=== PATIENT | female | born 1990 | race Caucasian/White ===

== ENCOUNTER 2021-10-22 20:28 | Emergency (ER) | payer OTHER ==
[2021-10-22 20:45] VITALS: TEMP 100.3
[2021-10-22] MEDS ORDERED: HYDROmorphone 0.5 MG/0.5 ML SYRINGE IVP STA (20:56)
[2021-10-22] MEDS ORDERED: SODIUM CHLORIDE 0.9% 1,000 ML IV STA (20:56)
[2021-10-22] MEDS ORDERED: ONDANSETRON 4 MG/2 ML VIAL IVP STA (20:56)
--- NOTE | 2021-10-22 21:01 | ED ---
General Adult HPI - General Chief complaint: Nausea/Vomiting/Diarrhea Stated complaint: Vomiting Time Seen by Provider: 10/22/21 20:50 Source: patient, RN notes reviewed, old records reviewed Mode of arrival: ambulatory Limitations: no limitations - History of Present Illness Initial comments: 30-year-old female, alert and oriented 4, well-appearing, presents to the emergency room with complaints of abdominal pain and 4 episodes of bloody vomitus with clots. Denies bloody stool. She is passing gas. She does have a low-grade fever. She states that this is never happened to her before. She has a history of a cholecystectomy, appendectomy and C-sections. She states she went to [facility] and was told a 30 hour wait so she came here for treatment. She denies any alcohol or drug use, she is a nonsmoker. -: days(s) (1) Location: abdomen Radiation: non-radiation Severity scale (1-10): 7 Quality: burning, sharp Consistency: constant Improves with: none Worsens with: none Associated Symptoms: diaphoresis, fever/chills, nausea/vomiting (No vomiting. She) Treatments Prior to Arrival: none - Related Data Previous Rx's Medication Instructions Recorded Famotidine [Pepcid] 20 mg PO BID 30 Days #60 tablet 10/22/21 Allergies Allergy/AdvReac Type Severity Reaction Status Date / Time dicyclomine [From Bentyl] Allergy Dyspnea Verified 10/22/21 22:38 ketorolac [From Toradol] Allergy Rash/Hives Verified 10/22/21 22:37 tomato Allergy Anaphylaxis Verified 10/22/21 22:38 Iodinated Contrast Media AdvReac Rash/Hives Verified 10/22/21 22:38 latex AdvReac Rash/Hives Verified 10/22/21 22:38 Review of Systems ROS Statement: Those systems with pertinent positive or pertinent negative responses have been documented in the HPI. ROS Other: All systems not noted in ROS Statement are negative. Past Medical History Past Medical History: No Reported History History of Any Multi-Drug Resistant Organisms: None Reported Past Surgical History: Cholecystectomy Past Psychological History: No Psychological Hx Reported Smoking Status: Never smoker Past Alcohol Use History: None Reported Past Drug Use History: None Reported General Exam Limitations: no limitations General appearance: alert, in no apparent distress Head exam: Present: atraumatic, normocephalic, normal inspection Eye exam: Present: normal appearance, EOMI. Absent: scleral icterus, conjunctival injection ENT exam: Present: normal exam, normal oropharynx, mucous membranes moist Neck exam: Present: normal inspection, full ROM. Absent: tenderness, meningismus, lymphadenopathy, thyromegaly Respiratory exam: Present: normal lung sounds bilaterally. Absent: respiratory distress, wheezes, rales, rhonchi, stridor, chest wall tenderness, accessory muscle use, decreased breath sounds Cardiovascular Exam: Present: tachycardia, normal heart sounds. Absent: JVD GI/Abdominal exam: Present: soft, tenderness, normal bowel sounds. Absent: distended, guarding, rebound, rigid Extremities exam: Absent: pedal edema Back exam: Present: normal inspection. Absent: tenderness, CVA tenderness (R), CVA tenderness (L), rash noted Neurological exam: Present: alert, oriented X3, normal gait Psychiatric exam: Present: normal affect, normal mood Skin exam: Present: warm, dry, intact, normal color. Absent: rash, cyanosis, diaphoretic Course Vital Signs 10/22/21 20:40 Temperature 100.3 F H Pulse Rate 116 H Respiratory 20 Rate Blood Pressure 116/67 O2 Sat by Pulse 97 Oximetry Medical Decision Making - Medical Decision Making 30-year-old female presents with complaints of 4 episodes of bloody vomitus with clots and low grade fever started today. Patient tested positive for influenza A. Lactic acid is 2.3 and she was given one liter of normal saline. Patient was given 2 doses of Dilaudid, Zofran, Benadryl and Protonix and is feeling much better. No vomiting in the emergency room. White blood cell count is 3.2 consistent with viral infection. X-ray shows a nonacute abdomen with no pneumonic infiltrate. CT abdomen was done related to diffuse tenderness and patient report of bloody vomitus. CT of t he abdomen and pelvis with contrast shows some mild interstitial infiltrate the lung bases this is likely viral in nature. There is no acute abnormality within the abdomen or pelvis. There is no mesenteric edema free air or sign of bowel obstruction. Patient was given a take-home pack of Zofran for nausea. She is encouraged to increase her fluid intake. Take Pepcid twice a day. Return to the emergency room with any new or concerning symptoms. If bleeding recurs, go to [facility] for GI coverage. Patient is agreeable to this plan of care. Vital signs are stable at discharge. My attending is Dr Mancuso - Lab Data Result diagrams: 10/22/21 21:30 10/22/21 21:30 Lab Results 10/22/21 10/22/21 10/22/21 Range/Units 21:30 21:30 21:30 WBC 3.2 L (3.8-10.6) k/uL RBC 4.57 (3.80-5.40) m/uL Hgb 10.9 L (11.4-16.0) gm/dL Hct 35.2 (34.0-46.0) % MCV 77.0 L (80.0-100.0) fL MCH 23.9 L (25.0-35.0) pg MCHC 31.1 (31.0-37.0) g/dL RDW 15.5 (11.5-15.5) % Plt Count 231 (150-450) k/uL MPV 7.2 Neutrophils % 56 % Lymphocytes % 35 % Monocytes % 8 % Eosinophils % 0 % Basophils % 0 % Neutrophils # 1.8 (1.3-7.7) k/uL Lymphocytes # 1.1 (1.0-4.8) k/uL Monocytes # 0.2 (0-1.0) k/uL Eosinophils # 0.0 (0-0.7) k/uL Basophils # 0.0 (0-0.2) k/uL Hypochromasia Moderate Microcytosis Slight PT 9.5 (9.0-12.0) sec INR 0.9 (<1.2) APTT 22.5 (22.0-30.0) sec Sodium 143 (137-145) mmol/L Potassium 4.3 (3.5-5.1) mmol/L Chloride 110 H (98-107) mmol/L Carbon Dioxide 19 L (22-30) mmol/L Anion Gap 14 mmol/L BUN 8 (7-17) mg/dL Creatinine 0.58 (0.52-1.04) mg/dL Est GFR (CKD-EPI)AfAm >90 (>60 ml/min/1.73 sqM) Est GFR (CKD-EPI)NonAf >90 (>60 ml/min/1.73 sqM) Glucose 112 H (74-99) mg/dL Plasma Lactic Acid René (0.7-2.0) mmol/L Calcium 9.3 (8.4-10.2) mg/dL Total Bilirubin 0.4 (0.2-1.3) mg/dL AST 32 (14-36) U/L ALT 17 (4-34) U/L Alkaline Phosphatase 42 (38-126) U/L Total Protein 8.2 (6.3-8.2) g/dL Albumin 4.5 (3.5-5.0) g/dL Amylase 87 (30-110) U/L Lipase 320 H (23-300) U/L Urine Color Urine Appearance (Clear) Urine pH (5.0-8.0) Ur Specific [place] (1.001-1.035) Urine Protein (Negative) Urine Glucose (UA) (Negative) Urine Ketones (Negative) Urine Blood (Negative) Urine Nitrite (Negative) Urine Bilirubin (Negative) Urine Urobilinogen (<2.0) mg/dL Ur Leukocyte Esterase (Negative) Influenza Type A (PCR) (Not Detectd) Influenza Type B (PCR) (Not Detectd) RSV (PCR) (Not Detectd) SARS-CoV-2 (PCR) (Not Detectd) 10/22/21 10/22/21 10/22/21 Range/Units 21:30 22:26 22:26 WBC (3.8-10.6) k/uL RBC (3.80-5.40) m/uL Hgb (11.4-16.0) gm/dL Hct (34.0-46.0) % MCV (80.0-100.0) fL MCH (25.0-35.0) pg MCHC (31.0-37.0) g/dL RDW (11.5-15.5) % Plt Count (150-450) k/uL MPV Neutrophils % % Lymphocytes % % Monocytes % % Eosinophils % % Basophils % % Neutrophils # (1.3-7.7) k/uL Lymphocytes # (1.0-4.8) k/uL Monocytes # (0-1.0) k/uL Eosinophils # (0-0.7) k/uL Basophils # (0-0.2) k/uL Hypochromasia Microcytosis PT (9.0-12.0) sec INR (<1.2) APTT (22.0-30.0) sec Sodium (137-145) mmol/L Potassium (3.5-5.1) mmol/L Chloride (98-107) mmol/L Carbon Dioxide (22-30) mmol/L Anion Gap mmol/L BUN (7-17) mg/dL Creatinine (0.52-1.04) mg/dL Est GFR (CKD-EPI)AfAm (>60 ml/min/1.73 sqM) Est GFR (CKD-EPI)NonAf (>60 ml/min/1.73 sqM) Glucose (74-99) mg/dL Plasma Lactic Acid René 2.3 H* (0.7-2.0) mmol/L Calcium (8.4-10.2) mg/dL Total Bilirubin (0.2-1.3) mg/dL AST (14-36) U/L ALT (4-34) U/L Alkaline Phosphatase (38-126) U/L Total Protein (6.3-8.2) g/dL Albumin (3.5-5.0) g/dL Amylase (30-110) U/L Lipase (23-300) U/L Urine Color Yellow Urine Appearance Clear (Clear) Urine pH 5.0 (5.0-8.0) Ur Specific [place] 1.025 (1.001-1.035) Urine Protein Trace H (Negative) Urine Glucose (UA) Negative (Negative) Urine Ketones Negative (Negative) Urine Blood Negative (Negative) Urine Nitrite Negative (Negative) Urine Bilirubin Negative (Negative) Urine Urobilinogen <2.0 (<2.0) mg/dL Ur Leukocyte Esterase Negative (Negative) Influenza Type A (PCR) Detected A (Not Detectd) Influenza Type B (PCR) Not Detected (Not Detectd) RSV (PCR) Not Detected (Not Detectd) SARS-CoV-2 (PCR) Not Detected (Not Detectd) Disposition Clinical Impression: Influenza A Disposition: HOME SELF-CARE Condition: Good Instructions (If sedation given, give patient instructions): Influenza (ED), Acute Nausea and Vomiting (ED) Prescriptions: Famotidine [Pepcid] 20 mg PO BID 30 Days #60 tablet Is patient prescribed a controlled substance at d/c from ED?: No Referrals: Nonstaff,Physician [REFERRING] - 1-2 days
[2021-10-22 21:47] LABS: Basophils % (A) 0 %; Eosinophils % (A) 0 %; HCT 35.2 % (34.0-46.0); HGB 10.9 gm/dL (11.4-16.0); Hypochromasia Moderate; Lymphocytes # (A) 1.1 k/uL (1.0-4.8); Lymphocytes % (A) 35 %; MCH 23.9 pg (25.0-35.0); MCHC 31.1 g/dL (31.0-37.0); Mean Platelet Volume 7.2; Microcytosis Slight; Monocytes # (A) 0.2 k/uL (0-1.0); Monocytes % (A) 8 %; Neutrophils # (A) 1.8 k/uL (1.3-7.7); Neutrophils % (A) 56 %; Platelet Count 231 k/uL (150-450); RBC 4.57 m/uL (3.80-5.40); RDW 15.5 % (11.5-15.5); WBC 3.2 k/uL (3.8-10.6)
--- NOTE | 2021-10-22 21:52 | XR ---
EXAMINATION TYPE: XR KUB DATE OF EXAM: 10/22/2021 COMPARISON: NONE HISTORY: Abdominal pain TECHNIQUE: 2 views FINDINGS: There is no heart failure not confluent pneumonic infiltrate. Costophrenic angles are clear . There are no hilar masses. Diaphragm is normal. IMPRESSION: Nonacute abdomen.
[2021-10-22 21:55] LABS: INR 0.9 (<1.2); Partial Thromboplastin Time 22.5 sec (22.0-30.0); Prothrombin Time 9.5 sec (9.0-12.0)
[2021-10-22 22:03] LABS: ALT 17 U/L (4-34); African American GFR (CKD) >90 (>60 ml/min/1.73 sqM); Albumin 4.5 g/dL (3.5-5.0); Amylase 87 U/L (30-110); Anion Gap 14 mmol/L; Blood Urea Nitrogen 8 mg/dL (7-17); Calcium 9.3 mg/dL (8.4-10.2); Carbon Dioxide 19 mmol/L (22-30); Chloride 110 mmol/L (98-107); Glucose 112 mg/dL (74-99); Lipase 320 U/L (23-300); Non-African American GFR(CKD) >90 (>60 ml/min/1.73 sqM); Sodium 143 mmol/L (137-145); Total Bilirubin 0.4 mg/dL (0.2-1.3); Total Protein 8.2 g/dL (6.3-8.2)
[2021-10-22 22:10] LABS: AST 32 U/L (14-36); Alkaline Phosphatase 42 U/L (38-126); Potassium 4.3 mmol/L (3.5-5.1)
[2021-10-22] MEDS ORDERED: PANTOPRAZOLE 40 MG/10 ML VIAL IVP STA (22:12)
[2021-10-22] MEDS ORDERED: HYDROmorphone 1 MG/ML 1 ML SYRINGE IVP STA (22:12)
[2021-10-22 22:36] LABS: Appearance,Urine Clear (Clear); Bilirubin,Urine Negative (Negative); Blood,Urine Negative (Negative); Color,Urine Yellow; Glucose,Urine (UA) Negative (Negative); Ketones,Urine Negative (Negative); Leukocyte Esterase,Urine Negative (Negative); Nitrite,Urine Negative (Negative); Protein,Urine Trace (Negative); Specific Gravity,Urine 1.025 (1.001-1.035); Urobilinogen,Urine <2.0 mg/dL (<2.0)
[2021-10-22] MEDS ORDERED: diphenhydrAMINE 50 MG/ML 1 ML VIAL IVP STA (22:38)
[2021-10-22] MEDS ORDERED: ONDANSETRON 4 MG ODT STARTER PACK 2 TAB BTL PO STA (23:49)
--- NOTE | 2021-10-22 23:50 | CT ---
EXAMINATION TYPE: CT abdomen pelvis w con DATE OF EXAM: 10/22/2021 COMPARISON: Vomiting HISTORY: vomiting bright red with clots CT DLP: 1197.2 mGycm Automated exposure control for dose reduction was used. CONTRAST: Performed with IV Contrast, patient injected with 100 mL of Isovue 300. Images obtained from the diaphragm to the floor the pelvis with IV contrast. There is some mild interstitial infiltrate at the posterior lung bases. Heart is borderline enlarged. There is no pericardial effusion. Liver spleen and stomach pancreas appear intact. There are mild du cts are not dilated. Gallbladder appears absent. There is no adrenal mass. Kidneys show satisfactory contrast opacification. There is no hydronephrosi s. Delayed images show normal renal excretion. There is no retroperitoneal adenopathy. There are clip s from appendectomy. Bladder distends smoothly. Ureters are not dilated. Uterus is anteverted. There is no free fluid in the pelvis. There is no sign of pelvic mass. There is no inguinal hernia. There is no mesenteric edema. There is no ascites or free air. There is no sign of a bowel obstructio n. IMPRESSION: Mild interstitial infiltrate at the lung bases. No acute abnormality in the abdomen and pelvis.
[2021-10-22] MEDS ORDERED: ACET/COD 300 MG/30 MG STARTER PACK 6 TAB BTL PO STA (23:55)
[2021-10-23 00:26] VITALS: BP 109/92; PULSE 82; RESP 18
== END 2021-10-23 00:26 | disposition home or self-care (01) ==
LOC: EC 20:28
DX: J10.1 Influenza due to other identified influenza virus with other respiratory manifestations (principal); Z20.822 Contact with and (suspected) exposure to COVID-19
CPT/HCPCS: 36415; 80053; 82150; 83605; 83690; 85025; 85610; 85730; 81003; 87636; 74018; 74177; 99284; 96374; 96375 ×3; 96376; 96361 ×2; J1200; J2405; J1170 ×2; S0119; C9113; Q9967

== ENCOUNTER 2021-10-28 18:00 | Emergency (ER) | payer OTHER ==
[2021-10-28 18:27] VITALS: BP 123/78; PULSE 112; RESP 20; TEMP 100.8
--- NOTE | 2021-10-29 04:32 | ED ---
General Adult HPI - General Chief complaint: GI Bleed Stated complaint: revisit/vomiting blood Time Seen by Provider: 10/28/21 21:31 Source: patient Mode of arrival: ambulatory Limitations: no limitations - History of Present Illness Initial comments: 30-year-old female patient presented to the emergency department today for evaluation of hematemesis. The patient states that she was seen and evaluated for the same a couple of days ago she did test positive for influenza. Had labs performed. States that she did start Protonix which did seem to help somewhat but then she started vomiting blood again today. States there is clots present. She denies any dizziness or fainting. Denies any black stools, states her stools are light in color. She is reporting generalized abdominal pain worse over the upper abdomen. States she feels bloated. Denies any history of visits with GI specialist or history of hematemesis. Denies taking nsaids. Denies alcohol use. Denies any heart burn. - Related Data Previous Rx's Medication Instructions Recorded Famotidine [Pepcid] 20 mg PO BID 30 Days #60 tablet 10/22/21 Allergies Allergy/AdvReac Type Severity Reaction Status Date / Time dicyclomine [From Bentyl] Allergy Dyspnea Verified 10/28/21 18:27 ketorolac [From Toradol] Allergy Rash/Hives Verified 10/28/21 18:27 tomato Allergy Anaphylaxis Verified 10/28/21 18:27 Iodinated Contrast Media AdvReac Rash/Hives Verified 10/28/21 18:27 latex AdvReac Rash/Hives Verified 10/28/21 18:27 Review of Systems ROS Statement: Those systems with pertinent positive or pertinent negative responses have been documented in the HPI. ROS Other: All systems not noted in ROS Statement are negative. Past Medical History Past Medical History: No Reported History History of Any Multi-Drug Resistant Organisms: None Reported Past Surgical History: Cholecystectomy Past Psychological History: No Psychological Hx Reported Smoking Status: Never smoker Past Alcohol Use History: None Reported Past Drug Use History: None Reported General Exam Limitations: no limitations General appearance: alert, in no apparent distress, other (This is a well developed, well nourished adult female patient in no acute distress.) Respiratory exam: Present: normal lung sounds bilaterally. Absent: respiratory distress, wheezes, rales, rhonchi, stridor Cardiovascular Exam: Present: normal rhythm, tachycardia, normal heart sounds. Absent: systolic murmur, diastolic murmur, rubs, gallop, clicks GI/Abdominal exam: Present: soft, tenderness (Generalized), normal bowel sounds. Absent: distended, guarding, rebound, rigid Neurological exam: Present: alert, oriented X3, CN II-XII intact Psychiatric exam: Present: normal affect, normal mood Skin exam: Present: warm, dry, intact, normal color. Absent: rash Course Vital Signs 10/28/21 18:23 Temperature 100.8 F H Pulse Rate 112 H Respiratory 20 Rate Blood Pressure 123/78 O2 Sat by Pulse 99 Oximetry Medical Decision Making - Medical Decision Making 30 year-old female patient presents to the emergency department reporting hematemesis and abdominal pain. Physical examination did reveal generalized abdominal tenderness. Labs were ordered. Patient left against medical advice prior to testing. I was unable to speak with the patient before discharge. My attending is Dr. Jhaveri. Disposition Clinical Impression: Left against medical advice Disposition: Left Against Medical Advice Condition: Undetermined Referrals: None,Stated [Primary Care Provider] - 1-2 days
== END 2021-10-28 22:15 | disposition left against medical advice (07) ==
LOC: EC 18:00
DX: R10.84 Generalized abdominal pain (principal)
CPT/HCPCS: 99283

== ENCOUNTER 2021-11-01 17:59 | Emergency (ER) | payer OTHER ==
[2021-11-01 18:45] VITALS: BP 124/80; PULSE 94; RESP 18; TEMP 98
--- NOTE | 2021-11-01 19:05 | ED ---
General Adult HPI - General Chief complaint: Abdominal Pain Stated complaint: abd swelling, vomiting blood Time Seen by Provider: 11/01/21 18:49 Source: patient, RN notes reviewed, old records reviewed Mode of arrival: ambulatory Limitations: no limitations - History of Present Illness Initial comments: 30-year-old female who had presented with generalized abdominal pain and vomiting blood. She had a picture of the blood on her cell phone. Patient had initially told triage that she was from [place] later told me that she was from [place]. I did question the patient on what happened on her last evaluation in the emergency department she states she left AGAINST MEDICAL ADVICE. - Related Data Previous Rx's Medication Instructions Recorded Famotidine [Pepcid] 20 mg PO BID 30 Days #60 tablet 10/22/21 Allergies Allergy/AdvReac Type Severity Reaction Status Date / Time dicyclomine [From Bentyl] Allergy Dyspnea Verified 11/01/21 18:45 ketorolac [From Toradol] Allergy Rash/Hives Verified 11/01/21 18:45 tomato Allergy Anaphylaxis Verified 11/01/21 18:45 Iodinated Contrast Media AdvReac Rash/Hives Verified 11/01/21 18:45 latex AdvReac Rash/Hives Verified 11/01/21 18:45 Review of Systems ROS Statement: Those systems with pertinent positive or pertinent negative responses have been documented in the HPI. ROS Other: All systems not noted in ROS Statement are negative. Past Medical History Past Medical History: No Reported History History of Any Multi-Drug Resistant Organisms: None Reported Past Surgical History: Cholecystectomy Past Psychological History: No Psychological Hx Reported Smoking Status: Never smoker Past Alcohol Use History: None Reported Past Drug Use History: None Reported General Exam Limitations: no limitations General appearance: alert, in no apparent distress Head exam: Present: normocephalic Eye exam: Present: normal appearance Respiratory exam: Absent: respiratory distress Neurological exam: Present: alert, oriented X3. Absent: motor sensory deficit Skin exam: Present: warm, dry, intact Course Vital Signs 11/01/21 18:42 Temperature 98 F Pulse Rate 94 Respiratory 18 Rate Blood Pressure 124/80 O2 Sat by Pulse 100 Oximetry - Reevaluation(s) Reevaluation #1: 11/01/21 19:05 Patient eloped prior to complete evaluation. Medical Decision Making - Medical Decision Making This patient did elope from the emergency department prior to complete physical exam. I believe that this patient has registered under multiple different aliases and was unable to provide identification. I have evaluated this patient with a different name within the past one month. I did discuss this with several the staff members in the department who also have evaluated this patient under multiple names. Apparently the legal Department is aware. I was more than willing to perform a complete history and physical exam and treat this patient appropriately. Disposition Clinical Impression: Abdominal pain Disposition: Left Against Medical Advice Condition: Stable Is patient prescribed a controlled substance at d/c from ED?: No Referrals: None,Stated [Primary Care Provider] - 1-2 days
== END 2021-11-01 19:05 | disposition left against medical advice (07) ==
LOC: EC 17:59
DX: R10.9 Unspecified abdominal pain (principal)
CPT/HCPCS: 99283